=== PATIENT | female | born 1995 | race Caucasian/White ===

== ENCOUNTER 2016-12-21 15:25 | Emergency (ER) | payer MEDICAID, OTHER ==
[~2016-12-21] VITALS: Ht 149.9 cm; Wt 48.0 kg
[~2016-12-21 15:25] MED LIST: AMOX500T PO; MMW SWISH-SWAL
[2016-12-21 15:28] VITALS: BP 108/68; PULSE 92; RESP 18; TEMP 99; O2SAT 98
--- NOTE | 2016-12-21 18:06 | PD ---
Physical Exam Date Seen by Provider: Dec 21, 2016 Narrative Patient presents with a two-month history of suprapubic pain. Data Data Last Documented VS Vital Signs Date Time Temp Pulse Resp B/P (MAP) Pulse Ox O2 Delivery O2 Flow Rate FiO2 12/21/16 15:28 99.0 92 18 108/68 (81) 98 Room Air Orders Orders Gc And Chlamydia Pcr (12/21/16 17:21) Wet Prep Profile (12/21/16 17:21) Urinalysis - C+S If Indicated (12/21/16 17:21) Ed Urine Pregnancytest Poc (12/21/16 17:23) MDM Supervised Visit with JULIANE: Yes Narrative Course I, Dr. Brown, have reviewed the advance practice practitioner's documentation and am in agreement, met with the patient face to face, made the diagnosis, and the medical decision making was done by me. *My assessment and Findings: Patient's abdomen is soft. Benign abdominal exam. Please see Cynthia Mina NP's note for results of laboratory and radiographic evaluation, ED course, final diagnosis and disposition Scripts No Active Prescriptions or Reported Meds Alejandra Brown MD Dec 21, 2016 18:05
--- NOTE | 2016-12-21 18:15 | PD ---
HPI Chief Complaint: GI Complaint Time Seen by Provider: 16:55 Travel History International Travel<30 days: No Contact w/Intl Traveler<30days: No Traveled to known affect area: No History of Present Illness HPI 20-year-old female with lower/suprapubic abdominal pain and vaginal discharge times one month. Patient denies fever, chills, nausea or vomiting. Patient is sexually active and not currently using any protection PFSH Past Medical History Medical History: Denies Significant Hx Diminished Hearing: No Immunizations Current: Yes Tetanus Vaccination: < 5 Years Influenza Vaccination: No ?: Unknown LMP: 11/13/16 Past Surgical History Surgical History: No Previous Surgery Social History Alcohol Use: No Tobacco Use: No Substance Use: No Allergies-Medications (Allergen,Severity, Reaction): Coded Allergies: No Known Allergies (Verified , 12/21/16) Reported Meds & Prescriptions Reported Meds & Active Scripts Active No Active Prescriptions or Reported Medications Physical Exam Narrative GENERAL: Well-nourished, well-developed patient. SKIN: Focused skin assessment warm/dry. HEAD: Normocephalic. EYES: No scleral icterus. No injection or drainage. NECK: Supple, trachea midline. No JVD or lymphadenopathy. CARDIOVASCULAR: Regular rate and rhythm without murmurs, gallops, or rubs. RESPIRATORY: Breath sounds equal bilaterally. No accessory muscle use. GASTROINTESTINAL: Abdomen soft, non-tender, nondistended. : External genitalia without lesions, moderate amount of whitish clear discharge within the vault, cervical friability, cervical os closed, no cervical motion tenderness, no adnexal mass or tenderness. MUSCULOSKELETAL: No cyanosis, or edema. BACK: Nontender without obvious deformity. No CVA tenderness. Data Data Last Documented VS Vital Signs Date Time Temp Pulse Resp B/P (MAP) Pulse Ox O2 Delivery O2 Flow Rate FiO2 12/21/16 18:40 89 15 110/70 (83) 99 Room Air 12/21/16 15:28 99.0 Orders Orders Gc And Chlamydia Pcr (12/21/16 17:21) Wet Prep Profile (12/21/16 17:21) Urinalysis - C+S If Indicated (12/21/16 17:21) Ed Urine Pregnancytest Poc (12/21/16 17:23) Labs Laboratory Tests Test 12/21/16 18:10 Urine Color YELLOW Urine Turbidity HAZY Urine pH 5.5 Urine Specific [place] 1.023 Urine Protein TRACE mg/dL Urine Glucose (UA) NEG mg/dL Urine Ketones 80 mg/dL Urine Occult Blood TRACE Urine Nitrite NEG Urine Bilirubin NEG Urine Urobilinogen LESS THAN 2.0 MG/DL Urine Leukocyte Esterase NEG Urine RBC 1 /hpf Urine WBC 4 /hpf Urine Squamous Epithelial Cells 6 /hpf Urine Bacteria OCC /hpf Urine Mucus MANY /lpf Microscopic Urinalysis Comment CULT NOT INDICATED Clue Cells (Wet Prep) PRESENT Vaginal Trichomonas (Wet Prep) NONE SEEN Vaginal Yeast (Wet Prep) NONE SEEN MDM Medical Decision Making Medical Screen Exam Complete: Yes Emergency Medical Condition: Yes Differential Diagnosis Cervicitis, bacterial vaginosis, UTI Narrative Course 20-year-old female here with lower abdominal/suprapubic pain and vaginal discharge times one month. Patient reports that she is sexually active and not using any protection. She denies fever, chills, nausea or vomiting. Urine is negative. On exam patient is noted to have cervical friability and a vaginal discharge. Patient has no cervical motion tenderness and is well- appearing. Wet Prep: Positive for clue cells, negative for Trichomonas, negative for yeast GC chlamydia: Pending ua: Positive for mucus and bacteria likely contaminant Diagnosis Primary Impression: Cervicitis Additional Impression: Bacterial vaginosis Referrals: Geriatrics Physician Additional Instructions: Take the medications as prescribed. use condoms with each episode of sexual intercourse. Follow up with your REGISTERED NURSE POST PARTUM. Scripts Metronidazole Vaginal Gel (Metronidazole Vaginal Gel) 0.75 % Gel 1 APPL VAGINAL HS for Infection for 7 Days, GM 0 Refills Prov: Cynthia Mina 12/21/16 Disposition: 01 DISCHARGE HOME Condition: Stable Cynthia Mina Dec 21, 2016 18:15
[2016-12-21 18:40] VITALS: BP 110/70; PULSE 89; RESP 15; O2SAT 99
[2016-12-21 19:10] LABS: BACTERIA, URINE OCC /hpf; BLOOD, URINE TRACE (NEG); COMMENT (UR) CULT NOT INDICATED; CULTURE IF INDICATED CULT NOT INDICATED; GLUCOSE,URINE NEG (NEG); KETONE, URINE 80 mg/dL (NEG); MUCUS URINE MANY /lpf (OCC); NITRITE,URINE NEG (NEG); PH, URINE 5.5 (5.0-8.5); SQUAMOUS EPITHELIAL CELL URINE 6 /hpf (0-5); URINE COLOR YELLOW (YELLW/STRAW)
[2016-12-21] MEDS ORDERED: METR0.7512 VAGINAL (19:33)
[2016-12-21] MEDS ORDERED: AZITHROMYCIN PWD FOR SUSP 1 GM PACKET PO ONE (19:45)
[2016-12-21] MEDS ORDERED: LIDOCAINE HCL 1% 50 ML VIAL IM ONE (19:45)
[2016-12-21] MEDS ORDERED: cefTRIAXone 250 MG VIAL IM ONE (19:45)
[2016-12-21 22:14] LABS: CHLAMYDIA PCR NOT DETECTED (NOT DETECT); NEISSERIA PCR NOT DETECTED (NOT DETECT)
== END 2016-12-21 20:28 | disposition home or self-care (01) ==
LOC: NEPD 15:25
DX: N72 Inflammatory disease of cervix uteri (principal); N76.0 Acute vaginitis
CPT/HCPCS: 81001; 84703; 87210; 87491; 87591; 96372; 99284; J0696

== ENCOUNTER 2017-02-03 19:49 | Emergency (ER) | payer MEDICAID ==
[~2017-02-03] VITALS: Ht 157.5 cm; Wt 52.0 kg
[~2017-02-03 19:49] MED LIST changes: -AMOX500T PO; +METR0.7512 VAGINAL; -MMW SWISH-SWAL
[2017-02-03 19:51] VITALS: BP 98/60; PULSE 100; RESP 16; TEMP 98.5; O2SAT 99
[2017-02-03] MEDS ORDERED: SODIUM CHLOR 0.9% 1000 ML INJ 1,000 ML IV SCH (21:14)
[2017-02-03] MEDS ORDERED: ONDANSETRON HCL 4 MG/2 ML VIAL IVP ONE (21:15)
[2017-02-03] MEDS ORDERED: SODIUM CHLORIDE 0.9% FLUSH 10 ML FLUSH IV FLUSH PRN (21:15)
--- NOTE | 2017-02-03 21:21 | PD ---
HPI Chief Complaint: GI Complaint Time Seen by Provider: 21:17 Travel History International Travel<30 days: No Contact w/Intl Traveler<30days: No Traveled to known affect area: No History of Present Illness HPI Patient comes in complaining of nausea and vomiting in that started yesterday. Patient thinks she is approximately 10-11 weeks has not seen an OB yet. Patient states she tried [id number] nausea medicine without improvement of symptoms. Patient reports she is taking vitamins. Patient states that anytime she eats or drinks anything she vomits it back up. Vomiting is reported to be nonbilious and non-bloody. Denies any chest pain, shortness breath, fevers, headache, abdominal pain, loss change in bowel or bladder, or vaginal discharge/bleeding. PFSH Past Medical History Medical History: Denies Significant Hx Diminished Hearing: No Immunizations Current: Yes Tetanus Vaccination: Never Vaccinated Influenza Vaccination: No ?: Social History Alcohol Use: No Tobacco Use: No Substance Use: No Allergies-Medications (Allergen,Severity, Reaction): Coded Allergies: No Known Allergies (Verified Adverse Reaction, Unknown, 02/03/17) Reported Meds & Prescriptions Reported Meds & Active Scripts Active Zofran Odt (Ondansetron Odt) 4 Mg Tab 4 Mg SL Q6HR PRN Phenergan Supp (Promethazine HCl) 12.5 Mg Supp 12.5 Mg RECTAL Q6H PRN Keflex (Cephalexin) 500 Mg Cap 500 Mg PO Q8H Metronidazole Vaginal Gel 0.75 % Gel 1 Appl VAGINAL HS 7 Days Review of Systems Except as stated in HPI: all other systems reviewed are Neg Physical Exam Narrative GENERAL: Well-developed, well nourished, in no acute distress, and non-ill appearing. SKIN: Focused skin assessment warm and dry. HEAD: Atraumatic. Normocephalic. EYES: Pupils equal and round. EOMI. No scleral icterus. No injection or drainage. ENT: No nasal bleeding or discharge. Mucous membranes pink and moist. NECK: Trachea midline. Supple. No nuclear rigidity. CARDIOVASCULAR: Regular rate and rhythm. No murmur appreciated. RESPIRATORY: No accessory muscle use. No respiratory distress. Clear to auscultation. Breath sounds equal bilaterally. GASTROINTESTINAL: Abdomen soft, non-tender, nondistended, and no guarding. Hepatic and splenic margins not palpable. Normal bowel sounds 4. No pulsatile mass. MUSCULOSKELETAL: No obvious deformities. No clubbing. No cyanosis. No edema. Full range of motion. NEUROLOGICAL: Awake and alert. No obvious cranial nerve deficits. Motor grossly within normal limits. Normal speech. PSYCHIATRIC: Appropriate mood and affect; insight and judgment normal. Data Data Last Documented VS Vital Signs Date Time Temp Pulse Resp B/P (MAP) Pulse Ox O2 Delivery O2 Flow Rate FiO2 02/04/17 00:49 02/03/17 19:51 98.5 100 16 99 Room Air Orders Orders Complete Blood Count With Diff (02/03/17 21:14) Comprehensive Metabolic Panel (02/03/17 21:14) Lipase (02/03/17 21:14) Urinalysis - C+S If Indicated (02/03/17 21:14) Iv Access Insert/Monitor (02/03/17 21:14) Ecg Monitoring (02/03/17 21:14) Oximetry (02/03/17 21:14) Ondansetron Inj (Zofran Inj) (02/03/17 21:15) Sodium Chlor 0.9% 1000 Ml Inj (Ns 1000 M (02/03/17 21:14) Sodium Chloride 0.9% Flush (Ns Flush) (02/03/17 21:15) Ed Urine Pregnancytest Poc (02/03/17 21:14) Heart Tones (02/03/17 21:14) Urine Culture (02/03/17 23:42) Ed Discharge Order (02/04/17 00:13) Labs Laboratory Tests Test 02/03/17 21:28 02/03/17 23:42 White Blood Count 12.5 TH/MM3 Red Blood Count 4.71 MIL/MM3 Hemoglobin 14.5 GM/DL Hematocrit 43.1 % Mean Corpuscular Volume 91.4 FL Mean Corpuscular Hemoglobin 30.7 PG Mean Corpuscular Hemoglobin Concent 33.6 % Red Cell Distribution Width 12.6 % Platelet Count 349 TH/MM3 Mean Platelet Volume 7.8 FL Neutrophils (%) (Auto) 81.3 % Lymphocytes (%) (Auto) 12.9 % Monocytes (%) (Auto) 5.1 % Eosinophils (%) (Auto) 0.3 % Basophils (%) (Auto) 0.4 % Neutrophils # (Auto) 10.2 TH/MM3 Lymphocytes # (Auto) 1.6 TH/MM3 Monocytes # (Auto) 0.6 TH/MM3 Eosinophils # (Auto) 0.0 TH/MM3 Basophils # (Auto) 0.1 TH/MM3 CBC Comment DIFF FINAL Differential Comment Blood Urea Nitrogen 9 MG/DL Creatinine 0.64 MG/DL Random Glucose 85 MG/DL Total Protein 8.8 GM/DL Albumin 4.3 GM/DL Calcium Level 9.2 MG/DL Alkaline Phosphatase 50 U/L Aspartate Amino Transf (AST/SGOT) 11 U/L Alanine Aminotransferase (ALT/SGPT) 20 U/L Total Bilirubin 1.1 MG/DL Sodium Level 133 MEQ/L Potassium Level 3.7 MEQ/L Chloride Level 101 MEQ/L Carbon Dioxide Level 22.2 MEQ/L Anion Gap 10 MEQ/L Estimat Glomerular Filtration Rate 117 ML/MIN Lipase 91 U/L Urine Color YELLOW Urine Turbidity HAZY Urine pH 5.5 Urine Specific [place] 1.018 Urine Protein TRACE mg/dL Urine Glucose (UA) NEG mg/dL Urine Ketones 150 mg/dL Urine Occult Blood NEG Urine Nitrite NEG Urine Bilirubin NEG Urine Urobilinogen LESS THAN 2.0 MG/DL Urine Leukocyte Esterase MOD Urine RBC 5 /hpf Urine WBC 13 /hpf Urine Squamous Epithelial Cells 14 /hpf Urine Renal Epithelial Cells <1 /hpf Urine Amorphous Sediment RARE Urine Bacteria MOD /hpf Urine Mucus MANY /lpf Microscopic Urinalysis Comment CULTURE INDICATED MDM Medical Decision Making Medical Screen Exam Complete: Yes Emergency Medical Condition: Yes Differential Diagnosis Hyperemesis , nausea and vomiting , UTI, metabolic disturbance Narrative Course Patient in no obvious distress upon re-evaluation. Patient has not vomited while in the ER. heart tendons found to be in the 170s. All pertinent laboratory result(s) discussed with patient/family. Discussed patient with Dr. Childs prior to discharge, who is in agreement with plan of care and disposition. Patient was asked if they wanted to speak to my attending, which the patient did not wish to do at this time. Any questions/concerns in reference to patient diagnosis/condition discussed and clarified prior to patient's discharge. Reinforced sheer importance of close follow up with patient 's primary physician or primary care clinic. Instructed patient to return to ED immediately, if symptoms return/worsen. Patient showed understanding of above instructions. Further instructions and recommendations were detailed in discharge paperwork. Patient ambulated without difficulty out of ED at discharge. Diagnosis Primary Impression: Nausea and vomiting during Additional Impression: UTI in Qualified Codes: O23.41 - Unspecified infection of urinary tract in , first trimester Referrals: [facility] Patient Instructions: General Instructions, Nausea and Vomiting in ( ED), Urinary Tract Infection in (ED) Additional Instructions: Follow-up with your primary care physician and/or OB this week for reevaluation. Take all medication as prescribed. Return to the emergency department if symptoms get worse. Med/Other Pt SpecificInfo: Prescription(s) given Scripts Ondansetron Odt (Zofran Odt) 4 Mg Tab 4 MG SL Q6HR Y for Nausea/Vomiting, #12 TAB 0 Refills Prov: Yanick Childs MD 02/04/17 Promethazine Supp (Phenergan Supp) 12.5 Mg Supp 12.5 MG RECTAL Q6H Y for NAUSEA OR VOMITING, #7 SUPP 0 Refills Prov: Yanick Childs MD 02/04/17 Cephalexin (Keflex) 500 Mg Cap 500 MG PO Q8H for Infection, #30 CAP 0 Refills Prov: Yanick Childs MD 02/04/17 Disposition: 01 DISCHARGE HOME Condition: Stable Keith Giles Feb 03, 2017 21:21
[2017-02-03 21:54] LABS: AUTOMATED NEUTROPHIL # 10.2 TH/MM3 (1.8-7.7); BASOPHIL # 0.1 TH/MM3 (0-0.2); BASOPHIL % 0.4 % (0.0-2.0); EOSINOPHIL % 0.3 % (0.0-4.0); HEMATOCRIT 43.1 % (35.0-46.0); HEMO FLAGS DIFF FINAL; LYMPH % 12.9 % (9.0-44.0); LYMPHOCYTE # 1.6 TH/MM3 (1.0-4.8); MEAN CELL VOLUME 91.4 FL (80.0-100.0); MEAN CORPUSCULAR HEMOGLOBIN 30.7 PG (27.0-34.0); MEAN CORPUSCULAR HGB CONC 33.6 % (32.0-36.0); MONO % 5.1 % (0.0-8.0); NEUT % 81.3 % (16.0-70.0); PLATELET COUNT 349 TH/MM3 (150-450); RED BLOOD COUNT 4.71 MIL/MM3 (4.00-5.30); RED CELL DISTRIBUTION WIDTH 12.6 % (11.6-17.2); WHITE BLOOD COUNT 12.5 TH/MM3 (4.0-11.0)
[2017-02-03 22:13] LABS: ANION GAP 10 MEQ/L (5-15); AST (GOT) 11 U/L (15-37); BICARBONATE 22.2 MEQ/L (21.0-32.0); BLOOD UREA NITROGEN 9 MG/DL (7-18); CHLORIDE 101 MEQ/L (98-107); GLOMERULAR FILTRATION RATE 117 ML/MIN (>89); POTASSIUM 3.7 MEQ/L (3.5-5.1); SODIUM (NA) 133 MEQ/L (136-145)
[2017-02-03 22:14] LABS: ALT (GPT) 20 U/L (10-53)
[2017-02-03 22:16] LABS: ALKALINE PHOSPHATASE 50 U/L (45-117); TOTAL BILIRUBIN ADULT 1.1 MG/DL (0.2-1.0)
[2017-02-03 23:59] LABS: BACTERIA, URINE MOD /hpf; BLOOD, URINE NEG (NEG); GLUCOSE,URINE NEG (NEG); KETONE, URINE 150 mg/dL (NEG); MUCUS URINE MANY /lpf (OCC); NITRITE,URINE NEG (NEG); PH, URINE 5.5 (5.0-8.5); RENAL EPITHELIAL CELLS <1 /hpf; SQUAMOUS EPITHELIAL CELL URINE 14 /hpf (0-5); URINE COLOR YELLOW (YELLW/STRAW)
[2017-02-04] LABS: COMMENT (UR) CULTURE INDICATED; CULTURE IF INDICATED CULTURE INDICATED
[2017-02-04] MEDS ORDERED: ZOFR4TAB3 SL (00:12)
[2017-02-04] MEDS ORDERED: PROM2SUP RECTAL (00:12)
[2017-02-04] MEDS ORDERED: CEPH-460 PO (00:12)
== END 2017-02-04 00:50 | disposition home or self-care (01) ==
LOC: NEPD 19:49
DX: O21.9 Vomiting of pregnancy, unspecified (principal); O23.41 Unspecified infection of urinary tract in pregnancy, first trimester; B96.89 Other specified bacterial agents as the cause of diseases classified elsewhere; Z3A.11 11 weeks gestation of pregnancy
CPT/HCPCS: 80053; 81001; 83690; 84703; 85025; 87086; 96374; 99284; J2405; J7030

== ENCOUNTER 2017-07-02 19:39 | Emergency (ER) | payer MEDICAID, OTHER ==
[~2017-07-02 19:39] MED LIST changes: +CEPH-460 PO; +PROM2SUP RECTAL; +ZOFR4TAB3 SL
[2017-07-02] MEDS ORDERED: diphenhydrAMINE HCL 50 MG CAP PO ONE (20:45)
[2017-07-02] MEDS ORDERED: ACETAMINOPHEN 500 MG CPLT PO ONE (20:45)
--- NOTE | 2017-07-02 21:25 | PD ---
HPI Chief Complaint abdominal pain, cough and cold Date Seen: Jul 02, 2017 Time Seen: 21:18 Travel History International Travel<30 Days: No Contact w/Intl Traveler<30Days: No Known Affected Area: No History of Present Illness HPI pt. is a 21 y/o @ 31 weeks present w/ c/o lower abdominal pain and cough and cold. pt. states has pulling pain with movement. has been worse since she is coughing with congestion. pt. also states has pee leakage with cough as can feel push on bladder. +FM, no lof/vb, no ctxs. pt. given tylenol and 50mg benadryl w/ relief. Weeks Gestation: 31 Para: 0 : 1 History Past Medical History Medical History: Denies Significant Hx Obstetric History Obstetric History Past Surgical History Surgical History: No Previous Surgery Family History Family History: Negative Social History Alcohol Use: No Tobacco Use: No Substance Abuse: No Allergies-Medications (Allergen,Severity, Reaction): Coded Allergies: No Known Allergies (Verified Adverse Reaction, Unknown, 02/03/17) Home Meds Active Scripts Ondansetron Odt (Zofran Odt) 4 Mg Tab, 4 MG SL Q6HR Y for Nausea/Vomiting, #12 TAB 0 Refills Prov:Yanick Childs MD 02/04/17 Promethazine Supp (Phenergan Supp) 12.5 Mg Supp, 12.5 MG RECTAL Q6H Y for NAUSEA OR VOMITING, #7 SUPP 0 Refills Prov:Yanick Childs MD 02/04/17 Cephalexin (Keflex) 500 Mg Cap, 500 MG PO Q8H for Infection, #30 CAP 0 Refills Prov:Yanick Childs MD 02/04/17 Metronidazole Vaginal Gel (Metronidazole Vaginal Gel) 0.75 % Gel, 1 APPL VAGINAL HS for Infection for 7 Days, GM 0 Refills Prov:Cynthia Mina 12/21/16 Review of Systems Except as stated in HPI: all other systems reviewed are Neg Physical Exam Narrative GENERAL: Well-nourished, well-developed patient. SKIN: Warm and dry. HEAD: Normocephalic and atraumatic. EYES: No scleral icterus. No injection or drainage. ENT: No nasal drainage noted. Mucous membranes pink. Airway patent. NECK: Supple, trachea midline. No JVD. CARDIOVASCULAR: Regular rate and rhythm without murmurs, gallops, or rubs. RESPIRATORY: Breath sounds equal bilaterally. No accessory muscle use. BREASTS: Bilateral exam showed no masses , no retractions, no nipple discharge. ABDOMEN/GI: Abdomen soft, non-tender, bowel sounds present, no rebound, no guarding Gravid GENITOURINARY: Uterine Contractions: none FHT's: Category: 1 Reactive: + Variability: mod EXTREMITIES: No cyanosis or edema. BACK: Nontender without obvious deformity. No CVA tenderness. NEUROLOGICAL: Awake and alert. Motor and sensory grossly within normal limits. Five out of 5 muscle strength in all muscle groups. Normal speech. Data Data Vital Signs Reviewed: Yes Orders Orders Acetaminophen (Tylenol) (07/02/17 20:45) Diphenhydramine (Benadryl) (07/02/17 20:45) Small Boat Engineer Clear For Discharge (07/02/17 ) [facility] Medical Record Reviewed: Yes Plan pt. w/ cough/cold and most prob round lig pain. condition d/w pt. all ? answered. pt. to be d/c to home. given precautions for return. f/u as sched. Diagnosis Diagnosis: Primary Impression: Respiratory tract infection Additional Impression: Abdominal pain during Disposition: 01 DISCHARGE HOME Patient Instructions: General Instructions, Movement (ED), Abdominal Pain in (ED) Departure Forms: Tests/Procedures Bonilla Lagunas Jr., MD Jul 02, 2017 21:25
== END 2017-07-02 21:30 | disposition home or self-care (01) ==
LOC: HOBED 19:39
DX: O99.513 Diseases of the respiratory system complicating pregnancy, third trimester (principal); J98.8 Other specified respiratory disorders; Z3A.31 31 weeks gestation of pregnancy
CPT/HCPCS: 99283; Q0163

== ENCOUNTER 2017-09-01 13:23 | Emergency (ER) | payer OTHER ==
--- NOTE | 2017-09-01 14:35 | PD ---
HPI Chief Complaint side pain Date Seen: Sep 01, 2017 Time Seen: 14:15 Travel History International Travel<30 Days: No Contact w/Intl Traveler<30Days: No Known Affected Area: No History of Present Illness HPI 21 yo pt presents at 39 5/7 wks c/o side pain, concerned about contractions. +FM, denies LOF/VB. care has been with [facility] for [facility] and has been uncomplicated. History Past Medical History Medical History: Denies Significant Hx Obstetric History Obstetric History Past Surgical History Surgical History: No Previous Surgery Family History Family History: Negative Social History Alcohol Use: No Tobacco Use: No Substance Abuse: No Allergies-Medications (Allergen,Severity, Reaction): Coded Allergies: No Known Allergies (Verified Adverse Reaction, Unknown, 09/01/17) Home Meds Active Scripts Ondansetron Odt (Zofran Odt) 4 Mg Tab, 4 MG SL Q6HR Y for Nausea/Vomiting, #12 TAB 0 Refills Prov:Yanick Childs MD 02/04/17 Promethazine Supp (Phenergan Supp) 12.5 Mg Supp, 12.5 MG RECTAL Q6H Y for NAUSEA OR VOMITING, #7 SUPP 0 Refills Prov:Yanick Childs MD 02/04/17 Cephalexin (Keflex) 500 Mg Cap, 500 MG PO Q8H for Infection, #30 CAP 0 Refills Prov:Yanick Childs MD 02/04/17 Metronidazole Vaginal Gel (Metronidazole Vaginal Gel) 0.75 % Gel, 1 APPL VAGINAL HS for Infection for 7 Days, GM 0 Refills Prov:Cynthia Mina 12/21/16 Review of Systems Except as stated in HPI: all other systems reviewed are Neg Physical Exam AFVSS Narrative GENERAL: Well-nourished, well-developed patient. SKIN: Warm and dry. HEAD: Normocephalic and atraumatic. EYES: No scleral icterus. No injection or drainage. ENT: No nasal drainage noted. Mucous membranes pink. Airway patent. NECK: Supple, trachea midline. No JVD. CARDIOVASCULAR: Regular rate and rhythm without murmurs, gallops, or rubs. RESPIRATORY: Breath sounds equal bilaterally. No accessory muscle use. BREASTS: Bilateral exam showed no masses , no retractions, no nipple discharge. ABDOMEN/GI: Abdomen soft, non-tender, bowel sounds present, no rebound, no guarding Gravid GENITOURINARY: External Genitalia: intact and normal in appearance BUS glands: [-] Cervix: [-] ft/soft/high Presentation: [-] vtx Membranes: [intact] Uterine Contractions: [-] irregular FHT's: Category: [-] 1 Baseline: [-] Reactive: [-] Variability: [-] Decels: [-] EXTREMITIES: No cyanosis or edema. BACK: Nontender without obvious deformity. No CVA tenderness. NEUROLOGICAL: Awake and alert. Motor and sensory grossly within normal limits. Five out of 5 muscle strength in all muscle groups. Normal speech. Data Data Vital Signs Reviewed: Yes Orders Orders Vital Signs (Adult) .ON ADMISSION (09/01/17 14:14) ^ Labor Status (09/01/17 14:14) Urinalysis - C+S If Indicated (09/01/17 14:14) ^ Non Stress Test (09/01/17 14:14) ^ Hydration (09/01/17 14:14) Group B Strep: Negative Labs Laboratory Tests Test 09/01/17 13:32 [facility] Medical Record Reviewed: Yes Interpretation(s) False Labor Plan reviewed labor precautions advised f/u this coming week as pt hasn't bee seen in 4 wks. Diagnosis Diagnosis: Primary Impression: False labor after 37 completed weeks of gestation Disposition: 01 DISCHARGE HOME Condition: Stable Barron Domínguez MD Sep 01, 2017 14:35
[2017-09-01 14:47] LABS: BACTERIA, URINE OCC /hpf; BILIRUBIN, URINE NEG (NEG); BLOOD, URINE NEG (NEG); GLUCOSE,URINE NEG (NEG); KETONE, URINE NEG (NEG); MUCUS URINE FEW /lpf (OCC); NITRITE,URINE NEG (NEG); SQUAMOUS EPITHELIAL CELL URINE 22 /hpf (0-5); URINE COLOR YELLOW (YELLW/STRAW); URINE LEUKOCYTE ESTERASE SMALL (NEG)
== END 2017-09-01 14:55 | disposition home or self-care (01) ==
LOC: HOBED 13:23
DX: O47.1 False labor at or after 37 completed weeks of gestation (principal); Z3A.39 39 weeks gestation of pregnancy
CPT/HCPCS: 59025; 81001

== ENCOUNTER 2017-09-09 21:15 | Inpatient (IN) ==
[2017-09-13 08:41] VITALS: BP 106/66; PULSE 103; RESP 16
[2017-09-13 08:42] VITALS: TEMP 98.2
== END 2017-09-13 15:01 | disposition home or self-care (01) ==
LOC: H2E 21:15 → H1EA 09-10 20:22
PROVIDERS: ADMIT Obstetrics & Gynecology Maternal & Fetal Medicine; ATTEND Obstetrics & Gynecology Maternal & Fetal Medicine